=== PATIENT | female | born 1985 | race Caucasian/White ===

== ENCOUNTER 2023-05-07 01:19 | Outpatient (CLI) | payer OTHER ==
[~2023-05-07] VITALS: Ht 165.1 cm; Wt 73.2 kg
[2023-05-07 01:25] VITALS: BP 95/53
[2023-05-07] MEDS ORDERED: HOME MED LIST COMPLETE! XX SCH (01:30)
[2023-05-07] MEDS ORDERED: IRON1TAB2 PO (01:36)
[2023-05-07] MEDS ORDERED: MUCI1TAB16 PO (01:36)
[2023-05-07] MEDS ORDERED: VITAD400CA FT (01:36)
[2023-05-07] MEDS ORDERED: COLA100C5 PO (01:36)
[2023-05-07] MEDS ORDERED: OMEGCAP4 PO (01:36)
[2023-05-07] MEDS ORDERED: PRENTAB9 PO (01:36)
== END 2023-05-07 02:50 | disposition home or self-care (01) ==
LOC: M LDO 01:19
PROVIDERS: ATTEND Obstetrics & Gynecology
DX: O99.892 Other specified diseases and conditions complicating childbirth (principal); O26.892 Other specified pregnancy related conditions, second trimester; N93.0 Postcoital and contact bleeding; Z3A.27 27 weeks gestation of pregnancy; O99.012 Anemia complicating pregnancy, second trimester; Z79.899 Other long term (current) drug therapy
CPT/HCPCS: 59025; G0463

== ENCOUNTER 2023-08-02 07:32 | Inpatient (IN) | payer OTHER ==
[2023-08-02] VITALS (14 sets, daily range): BP systolic 103–130; BP diastolic 56–75
[~2023-08-02] VITALS: Ht 165.1 cm; Wt 82.3 kg
[~2023-08-02 07:32] MED LIST: COLA100C5 PO; IRON1TAB2 PO; MUCI1TAB16 PO; OMEGCAP4 PO; PRENTAB9 PO; VITAD400CA PO
[2023-08-02] MEDS ORDERED: LIDOCAINE 1% MDV 20ML VIAL INFIL PRN (08:30)
[2023-08-02] MEDS ORDERED: CARBOPROST TROMETHAMINE 250 MCG/ML AMP IM PRN (08:30)
[2023-08-02] MEDS ORDERED: METHYLERGONOVINE MALEATE 0.2MG/ML 1ML VIAL IM PRN (08:30)
[2023-08-02] MEDS ORDERED: OXYTOCIN DRIP 30 UNITS in IV 1 EA IV PRN (08:30)
[2023-08-02] MEDS ORDERED: TRANEXAMIC ACID INJection 1,000 MG in NS 100 ML IV PRN (08:30)
[2023-08-02] MEDS ORDERED: HOME MED LIST COMPLETE! XX SCH (08:35)
[2023-08-02] MEDS: LACTATED RINGER'S 1000 ML IV STA (08:55)
[2023-08-02 09:15] LABS: HEMATOCRIT 35.9 % (36.0-47.0); HEMOGLOBIN 12.4 g/dl (12.0-15.5); MEAN CORPUSCULAR HEMOGLOBIN 30.5 pg (27.0-33.0); MEAN CORPUSCULAR HGB CONC 34.5 g/dl (32.0-36.5); MEAN CORPUSCULAR VOLUME 88.4 fl (80.0-96.0); PLATELET COUNT, AUTOMATED 233 10^3/uL (150-450); RED BLOOD COUNT 4.06 10^6/uL (4.00-5.40); WHITE BLOOD COUNT 7.6 10^3/uL (4.0-10.0)
[2023-08-02] MEDS: miSOPROStol 50MCG 1/2 TABLET BUC PRN (09:46)
[2023-08-02] MEDS: LR 1,000 ML IV SCH (09:49)
[2023-08-03] VITALS (48 sets, daily range): BP systolic 98–207; BP diastolic 55–106; TEMP 98.7
[2023-08-03] MEDS: BUTORPHANOL 2 MG/ML 1ML VIAL IV ONE ×2 (00:19→12:38)
[2023-08-03] MEDS: PROMETHAZINE 25MG/ML 1ML VIAL IV ONE ×2 (00:19→12:37)
[2023-08-03] MEDS ORDERED: OXYTOCIN DRIP 30 UNITS in IV 1 EA IV SCH (09:20)
[2023-08-03] MEDS ORDERED: diphenhydrAMINE 50MG/ML VIAL IV PRN (14:45)
[2023-08-03] MEDS ORDERED: EPIDURAL/PCA KEYS XX PRN (14:45)
[2023-08-03] MEDS ORDERED: LR 500 ML IV PRN (14:45)
[2023-08-03] MEDS ORDERED: NALOXONE INJ 0.4MG/1ML VIAL IV PRN (14:45)
[2023-08-03] MEDS ORDERED: FENTANYL 2MCG/ML ROPIVACAINE 0.2% IN 0.9% NACL 100ML IVBAG As Ordered ONE (14:47)
[2023-08-03] MEDS: FENTANYL/ROPIVACAINE/NACL BAG 100 ML EPIDURAL SCH (15:17)
[2023-08-03] MEDS: ePHEDrine SULFATE 25 MG/5 ML(5MG/ML) SYRINGE IVP PRN (16:13)
[2023-08-03] MEDS ORDERED: AZITHROMYCIN INJ 500 MG, VIAL MATE ADAPTER 1 EACH in NS 250 ML IV ONE (21:25)
[2023-08-03] MEDS ORDERED: ceFAZolin SOD 2 GM in IV 1 EA IV ONE (21:25)
[2023-08-03] MEDS ORDERED: BICITRA 30ML SOLN UDC PO ONE (21:25)
[2023-08-03] MEDS: AZITHROMYCIN INJ 500 MG, VIAL MATE ADAPTER 1 EACH in NS 250 ML IV ONE (21:30)
[2023-08-03] MEDS: BICITRA 30ML SOLN UDC PO ONE (21:30)
[2023-08-03] MEDS: ONDANSETRON 4MG 2ML VIAL IV PRN (21:37)
[2023-08-03] MEDS: ceFAZolin SOD 2 GM in IV 1 EA IV ONE (22:00)
[2023-08-03] MEDS ORDERED: ONDANSETRON 4MG 2ML VIAL As Ordered ONE (22:21)
[2023-08-03] MEDS ORDERED: MORPHINE PRES-FREE INJ 10 MG/10 ML VIAL As Ordered ONE (22:35)
[2023-08-03 22:44] LABS: CORD GAS HCO3 V 22.1 MMOL/L; CORD GAS O2 SAT V 98.3 %; CORD GAS PCO2 V 39.7 mmHg; CORD GAS PH V 7.363 UNITS; CORD GAS PO2 V 85.7 mmHg; CORD GAS TCO2 V 23.3 MMOL/L
[2023-08-03 22:45] LABS: CORD GAS ABE A -4.2; CORD GAS HCO3 A 23.3 MMOL/L; CORD GAS O2 SAT A 76.6 %; CORD GAS PH A 7.277 UNITS; CORD GAS PO2 A 36.6 mmHg; CORD GAS SBC A 20.5 MMOL/L; CORD GAS TCO2 A 24.8 MMOL/L
[2023-08-03] MEDS ORDERED: ACETAMINOPHEN 1000MG 100ML IV BAG As Ordered ONE (22:45)
[2023-08-03] MEDS ORDERED: OXYTOCIN 30UNITS IN 0.9% NaCl 500ML IV BAG As Ordered ONE (22:52)
[2023-08-03] MEDS ORDERED: SIMETHICONE 80MG CHEW TAB PO PRN (22:55)
[2023-08-03] MEDS ORDERED: oxyCODONE 5MG TAB PO PRN (22:55)
[2023-08-03] MEDS ORDERED: MORPHINE 2 MG/ML 1ML VIAL IV PRN (22:55)
[2023-08-03] MEDS ORDERED: METHYLERGONOVINE MALEATE 0.2 MG TAB PO PRN (22:55)
[2023-08-03] MEDS ORDERED: RHOGAM 300MCG (1500IU) INJ IM SCH (22:55)
[2023-08-03] MEDS ORDERED: MOM 30ML SUSPENSION UDC PO PRN (22:55)
[2023-08-03] MEDS: LR 1,000 ML IV SCH (23:42)
[2023-08-03] MEDS: OXYTOCIN DRIP 30 UNITS in IV 1 EA IV SCH (23:42)
[2023-08-04] VITALS (9 sets, daily range): BP systolic 98–113; BP diastolic 57–70; O2SAT 95–100
[2023-08-04] MEDS: ACETAMINOPHEN 500 MG TAB PO SCH (01:11)
[2023-08-04] MEDS: METOCLOPRAMIDE INJ 10MG/2ML VIAL IV PRN (02:28)
[2023-08-04] MEDS: KETOROLAC 30 MG/ML 1ML VIAL IV SCH (05:03)
[2023-08-04] MEDS: ONDANSETRON 4MG 2ML VIAL IV PRN (06:20)
[2023-08-04 07:01] LABS: HEMATOCRIT 33.3 % (36.0-47.0); HEMOGLOBIN 11.1 g/dl (12.0-15.5); MEAN CORPUSCULAR HEMOGLOBIN 30.5 pg (27.0-33.0); MEAN CORPUSCULAR HGB CONC 33.3 g/dl (32.0-36.5); MEAN CORPUSCULAR VOLUME 91.5 fl (80.0-96.0); PLATELET COUNT, AUTOMATED 249 10^3/uL (150-450); RED BLOOD COUNT 3.64 10^6/uL (4.00-5.40); WHITE BLOOD COUNT 16.6 10^3/uL (4.0-10.0)
[2023-08-04] MEDS: PRENATAL VITAMINS CHEWABLE TABLET PO SCH (08:32)
[2023-08-04] MEDS: DOCUSATE SODIUM 100MG CAPSULE PO SCH (08:32)
[2023-08-04] MEDS: PROMETHAZINE 25MG/ML 1ML VIAL IV PRN (10:12)
[2023-08-05] MEDS: IBUPROFEN 800 MG TAB PO SCH (01:30)
[2023-08-05 02:00] VITALS: BP 98/55; O2SAT 95
[2023-08-05 06:00] VITALS: BP 110/58; O2SAT 96
[2023-08-05] MEDS: oxyCODONE 5MG TAB PO PRN (08:34)
[2023-08-05] MEDS: MEASLES,MUMPS,RUBELLA VACCINE INJ (MMR-II) SC.IMMUN ONE (09:00)
[2023-08-05 10:00] VITALS: BP 115/59; O2SAT 95
== END 2023-08-05 14:20 | disposition home or self-care (01) | DRG 773 ==
LOC: M LDI 07:32 → M OBS 08-04 00:25
PROVIDERS: ADMIT Advanced Practice Midwife; ATTEND Obstetrics & Gynecology
PROC: 3E0P7GC Introduction of Other Therapeutic Substance into Female Reproductive, Via Natural or Artificial Opening (ICD-10-PCS; 2023-08-02)
PROC: 10D00Z1 Extraction of Products of Conception, Low, Open Approach (ICD-10-PCS; principal; 2023-08-04)
DX: O76 Abnormality in fetal heart rate and rhythm complicating labor and delivery (principal); Z3A.40 40 weeks gestation of pregnancy; Z37.0 Single live birth

== ENCOUNTER → 2024-08-01 | Outpatient (CLI) | payer OTHER | LOC: M WHC 11:53 | PROVIDERS: ATTEND Family Medicine | DX: Z12.31 Encounter for screening mammogram for malignant neoplasm of breast (principal) ==